=== PATIENT | female | born 1935 | race Caucasian/White ===

== ENCOUNTER → 2016-11-23 | Outpatient (CLI) | payer MEDICARE | DX: I25.10 Atherosclerotic heart disease of native coronary artery without angina pectoris (principal); I10 Essential (primary) hypertension; E78.2 Mixed hyperlipidemia; R60.9 Edema, unspecified ==

== ENCOUNTER → 2017-10-26 | Day surgery (SDC) | payer MEDICARE ==
[~2017-10-26] VITALS: Ht 167.6 cm; Wt 83.9 kg
[~2017-10-26] MED LIST: AMLO5TAB2; ATOR10TA66; Aspirin; FURO40TA4; LACTATED RINGERS 1,000 ML IV ONE; LACTATED RINGERS 1,000 ML IV SCH; LACTATED RINGERS 1,000 ML IV STA; LINA5TAB; LOSA50TA36; METO-387; POTA10TA36; SUCCINYLCHOLINE INJ 100 MG/5 ML SYR ONE; proPOfol 200 MG/20 ML (DIPRIVAN) VIAL IV ONE
--- NOTE | 2017-10-26 19:57 | ED GI ---
General Stated Complaint: FOOD CAUGHT IN THROAT CANT GET IT OUT Source of Information: Patient, Family (son) Exam Limitations: No Limitations History of Present Illness Date Seen by Provider: October 26, 2017 Time Seen by Provider: 19:46 Initial Comments The patient presents to ER by private conveyance with a chief complaint that she is having difficulty swallowing. She says she had a large piece of orange chicken at noon which she knew was going to be too big went home she swallowed it. She says she does not have a history of choking or difficulty swallowing. No history of stroke, cirrhotic liver or esophageal issues. She's not having any pain or nausea right now but every time she tries to take a drink of water to try and force it down towards comes back up. Last time she had any water was about an hour prior to arrival. Last time she ate was at noon. She's never had to have an EGD before. She has a history of cardiac stents but does not know what medicines she is on her she's on any blood thinners. Allergies and Home Medications Allergies Coded Allergies: No Known Drug Allergies (Verified Allergy, Unknown, 07/14/09) Patient Home Medication List Home Medication List Reviewed: Yes Review of Systems Constitutional: No chills, No diaphoresis, No fever, No malaise EENTM: No Blurred Vision, No Double Vision Respiratory: Denies Cough, Denies Shortness of Air Cardiovascular: Denies Chest Pain, Denies Palpitations Gastrointestinal: Denies Abdomen Distended, Denies Abdominal Pain Genitourinary: Denies Burning, Denies Discharge Musculoskeletal: No back pain, No joint pain Past Zobxmxr-Anptlk-Yufzus Hx Patient Social History Alcohol Use: Denies Use Recreational Drug Use: No Smoking Status: Never a Smoker Recent Foreign Travel: No Contact w/Someone Who Travel: No Physical Exam Vital Signs Vital Signs - First Documented 10/26/17 19:40 Temp 97.9 Pulse 65 Resp 20 B/P (MAP) 175/77 (109) Pulse Ox 96 O2 Delivery Room Air Capillary Refill : General Appearance: WD/WN, no apparent distress HEENT: PERRL/EOMI, pharynx normal Neck: non-tender, full range of motion, supple, normal inspection Respiratory: chest non-tender, lungs clear, normal breath sounds, no respiratory distress, no accessory muscle use Cardiovascular: normal peripheral pulses, regular rate, rhythm, no edema Peripheral Pulses: 2+ Radial Pulses (R), 2+ Radial Pulses (L) Gastrointestinal: normal bowel sounds, non tender, soft Extremities: no pedal edema, normal capillary refill Progress/Results/Core Measures Results/Orders Lab Results Laboratory Tests Test 10/26/17 19:50 Range/Units White Blood Count 6.6 4.3-11.0 10^3/uL Red Blood Count 4.37 4.35-5.85 10^6/uL Hemoglobin 13.2 11.5-16.0 G/DL Hematocrit 39 35-52 % Mean Corpuscular Volume 90 80-99 FL Mean Corpuscular Hemoglobin 30 25-34 PG Mean Corpuscular Hemoglobin Concent 34 32-36 G/DL Red Cell Distribution Width 13.5 10.0-14.5 % Platelet Count 144 130-400 10^3/uL Mean Platelet Volume 11.0 H 7.4-10.4 FL Neutrophils (%) (Auto) 56 42-75 % Lymphocytes (%) (Auto) 30 12-44 % Monocytes (%) (Auto) 12 0-12 % Eosinophils (%) (Auto) 2 0-10 % Basophils (%) (Auto) 0 0-10 % Neutrophils # (Auto) 3.7 1.8-7.8 X 10^3 Lymphocytes # (Auto) 2.0 1.0-4.0 X 10^3 Monocytes # (Auto) 0.8 0.0-1.0 X 10^3 Eosinophils # (Auto) 0.1 0.0-0.3 10^3/uL Basophils # (Auto) 0.0 0.0-0.1 10^3/uL Sodium Level 143 135-145 MMOL/L Potassium Level 4.2 3.6-5.0 MMOL/L Chloride Level 107 98-107 MMOL/L Carbon Dioxide Level 26 21-32 MMOL/L Anion Gap 10 5-14 MMOL/L Blood Urea Nitrogen 30 H 7-18 MG/DL Creatinine 1.49 H 0.60-1.30 MG/DL Estimat Glomerular Filtration Rate 33 BUN/Creatinine Ratio 20 Glucose Level 133 H 70-105 MG/DL Calcium Level 9.4 8.5-10.1 MG/DL Total Bilirubin 0.9 0.1-1.0 MG/DL Aspartate Amino Transf (AST/SGOT) 20 5-34 U/L Alanine Aminotransferase (ALT/SGPT) 17 0-55 U/L Alkaline Phosphatase 59 40-136 U/L Total Protein 6.9 6.4-8.2 GM/DL Albumin 4.1 3.2-4.5 GM/DL My Orders Orders - ARIANNA CAMPBELL Cbc With Automated Diff (10/26/17 19:50) Comprehensive Metabolic Panel (10/26/17 19:50) Saline Lock/Iv-Start (10/26/17 19:50) Vital Signs/I&O 10/26/17 19:40 Temp 97.9 Pulse 65 Resp 20 B/P (MAP) 175/77 (109) Pulse Ox 96 O2 Delivery Room Air Progress Progress Note #1: Time: 19:58 Progress Note We will establish an IV site some basic labs and scans the case with surgeon on- call. Progress Note #2: Time: 22:[address] Dover retrieved a food bolus and the patient is recovering. Progress Note #3: Time: 22:49 Progress Note Vital signs are normal. She is able to tolerate some fluids her and allow her to discharge home. Consults : Consulting Physician: CHEYENNE DOVER DO Consults Notes He recommends calling anesthesia, endoscopy and he will come see the patient. Departure Impression Primary Impression: FOREIGN BODY IN ESOPHAGUS Disposition: 01 HOME, SELF-CARE Condition: Improved Departure-Patient Inst. Decision time for Depature: 22:49 Referrals: LIDA SEBASTIAN MD (PCP/Family) Primary Care Physician Patient Instructions: Foreign Body, Swallowed, Adult (DC) Add. Discharge Instructions: Drink plenty fluids. Copy Copies To 1: LIDA SEBASTIAN MD, TITUS J October 26, 2017 19:57
[2017-10-26 20:02] LABS: BASOPHILS % (AUTO) 0 % (0-10); EOSINOPHILS # (AUTO) 0.1 10^3/uL (0.0-0.3); EOSINOPHILS % (AUTO) 2 % (0-10); HEMATOCRIT 39 % (35-52); HEMOGLOBIN 13.2 G/DL (11.5-16.0); LYMPHOCYTES % (AUTO) 30 % (12-44); MEAN CORPUSCULAR HEMOGLOBIN 30 PG (25-34); MEAN CORPUSCULAR HGB CONC 34 G/DL (32-36); MEAN CORPUSCULAR VOLUME 90 FL (80-99); MONOCYTES # (AUTO) 0.8 X 10^3 (0.0-1.0); MONOCYTES % (AUTO) 12 % (0-12); NEUTROPHILS # (AUTO) 3.7 X 10^3 (1.8-7.8); NEUTROPHILS % (AUTO) 56 % (42-75); PLATELET COUNT 144 10^3/uL (130-400); RED BLOOD COUNT 4.37 10^6/uL (4.35-5.85); RED CELL DISTRIBUTION WIDTH 13.5 % (10.0-14.5); WHITE BLOOD COUNT 6.6 10^3/uL (4.3-11.0)
[2017-10-26 20:22] LABS: ALBUMIN 4.1 GM/DL (3.2-4.5); BILIRUBIN,TOTAL 0.9 MG/DL (0.1-1.0); CALCIUM 9.4 MG/DL (8.5-10.1); CREATININE SERUM 1.49 MG/DL (0.60-1.30); POTASSIUM 4.2 MMOL/L (3.6-5.0); TOTAL PROTEIN 6.9 GM/DL (6.4-8.2)
--- NOTE | 2017-10-26 21:02 | Consultation ---
History of Present Illness History of Present Illness Patient Consulted On(charlie/time) 10/26/17 20:57 Time Seen by Provider: 20:24 History of Present Illness Surgery asked to consult regarding possible esophageal obstruction due to food bolus. HPI per ED: The patient presents to ER by private conveyance with a chief complaint that she is having difficulty swallowing. She says she had a large piece of orange chicken at noon which she knew was going to be too big went home she swallowed it. She says she does not have a history of choking or difficulty swallowing. No history of stroke, cirrhotic liver or esophageal issues. She's not having any pain or nausea right now but every time she tries to take a drink of water to try and force it down towards comes back up. Last time she had any water was about an hour prior to arrival. Last time she ate was at noon. She's never had to have an EGD before. She has a history of cardiac stents but does not know what medicines she is on her she's on any blood thinners. When I spoke with pt she said this has happened to her at least one time before , maybe more (her son agrees). She seems to be somewhat of a poor historian, because can't really remember if she had a Lap Ingrid or not. She had a little pain when it first occurred maybe 4 out of 10, but now rests comfortably without pain; unless she tries to drink fluid. No radiation of pain, no nausea at this time. Allergies and Home Medications Allergies Coded Allergies: No Known Drug Allergies (Verified Allergy, Unknown, 07/14/09) Patient Home Medication List Home Medication List Reviewed: Yes Past Wbwldju-Yiujme-Nljpez Hx Patient Social History Alcohol Use: Denies Use Recreational Drug Use: No Smoking Status: Never a Smoker Recent Foreign Travel: No Contact w/Someone Who Travel: No Recent Infectious Disease Expo: No Recent Hopitalizations: No Seasonal Allergies Seasonal Allergies: No Surgeries Surgeries: Cardiac (stent placement), Gallbladder Respiratory History of Respiratory Disorde: No Cardiovascular History of Cardiac Disorders: Yes Cardiac Disorders: Coronary Artery Disease, Hypertension Neurological Neurological Disorders: Dementia Reproductive System : No Hx Reproductive Disorders: No Genitourinary History of Genitourinary Disor: No Gastrointestinal Gastrointestinal Disorders: Gall Bladder Disease Musculoskeletal Musculoskeletal Disorders: Arthritis HEENT History of HEENT Disorders: No Loss of Vision: Denies Hearing Impairment: Hard of Hearing Cancer History of Cancer: No Psychosocial History of Psychiatric Problem: No Integumentary History of Skin or Integumenta: No Blood Transfusions History of Blood Disorders: No Adverse Reaction to a Blood Tr: No Family Medical History Significant Family History: Diabetes (Father and sister) Review of Systems-General Constitutional: No chills, No diaphoresis, No weakness EENTM: hoarseness, throat swelling; No blurred vision, No mouth swelling, No epistaxis Respiratory: No cough, No dyspnea on exertion, No hemoptysis Cardiovascular: No chest pain, No edema, No palpitations Gastrointestinal: No abdominal pain; dysphagia; No hematemesis, No jaundice, No melena Genitourinary: No dysuria, No frequency, No hematuria Musculoskeletal: joint pain, joint swelling Psychiatric/Neurological: Denies Anxiety, Denies Depressed, Denies Seizure, Denies Weakness Other Pt denies any abnormal bleeding or bruising Physical Exam-General Problems Physical Exam Vital Signs Vital Signs - First Documented 10/26/17 19:40 Temp 97.9 Pulse 65 Resp 20 B/P (MAP) 175/77 (109) Pulse Ox 96 O2 Delivery Room Air Capillary Refill : Less Than 3 Seconds General Appearance: WD/WN, no apparent distress Eyes: Bilateral Eye PERRL, Bilateral Eye EOMI HEENT: pharynx normal; No scleral icterus (R), No scleral icterus (L) Neck: non-tender, full range of motion, supple Respiratory: chest non-tender, lungs clear, normal breath sounds, no respiratory distress, no accessory muscle use Cardiovascular: regular rate, rhythm, no edema, no gallop, no JVD, no murmur Gastrointestinal: normal bowel sounds, non tender, soft, no organomegaly, no pulsatile mass Back: no CVA tenderness, no vertebral tenderness Extremities: normal range of motion, non-tender, no calf tenderness Neurologic/Psychiatric: spot washer II-XII nml as tested, no motor/sensory deficits, alert, normal mood/affect, oriented x 3 Skin: normal color, warm/dry Lymphatic: no adenopathy (neck, axilla or groin) Data Review Labs Laboratory Tests 10/26/17 19:50: White Blood Count 6.6, Red Blood Count 4.37, Hemoglobin 13.2, Hematocrit 39, Mean Corpuscular Volume 90, Mean Corpuscular Hemoglobin 30, Mean Corpuscular Hemoglobin Concent 34, Red Cell Distribution Width 13.5, Platelet Count 144, Mean Platelet Volume 11.0H, Neutrophils (%) (Auto) 56, Lymphocytes (%) (Auto) 30 , Monocytes (%) (Auto) 12, Eosinophils (%) (Auto) 2, Basophils (%) (Auto) 0, Neutrophils # (Auto) 3.7, Lymphocytes # (Auto) 2.0, Monocytes # (Auto) 0.8, Eosinophils # (Auto) 0.1, Basophils # (Auto) 0.0, Sodium Level 143, Potassium Level 4.2, Chloride Level 107, Carbon Dioxide Level 26, Anion Gap 10, Blood Urea Nitrogen 30H, Creatinine 1.49H, Estimat Glomerular Filtration Rate 33, BUN/ Creatinine Ratio 20, Glucose Level 133H, Calcium Level 9.4, Total Bilirubin 0.9 , Aspartate Amino Transf (AST/SGOT) 20, Alanine Aminotransferase (ALT/SGPT) 17, Alkaline Phosphatase 59, Total Protein 6.9, Albumin 4.1 Assessment/Plan Assessment/Plan Assessment/Plan Dysphagia possible obstructing food bolus CAD Plan is to take pt to Endoscopy for EGD with possible removal of food bolus possible biopsy. Risks and complications discussed with pt; not limited to pain , bleeding, infection and even esophageal perforation. Pt is also at risk for a cardiac event; however, we have to remove food bolus. I did tell her that it is possible it has already passed on its own. All questions answered to her and her son's satisfaction. CHEYENNE LIND DO October 26, 2017 21:02
--- NOTE | 2017-10-26 21:34 | Progress Note-Post Operative ---
Post-Operative Progess Note Surgeon (s)/Supervisor Orchard (s) Surgeon CHEYENNE LIND DO Supervisor Orchard: none Pre-Operative Diagnosis Dysphagia possible food bolus Post-Operative Diagnosis Food bolus obstructing Esophagus Hiatal Hernia Esophagitis Duodenitis Gastritis Gastric Polyp Procedure & Operative Findings Date of Procedure 10/26/17 Procedure Performed/Findings EGD with removal of food bolus EGD with bx of Antrum, duodenum and Polyp Anesthesia Type GET Estimated Blood Loss Estimated blood loss (mL): scant Specimens/Packing Specimens Removed food bolus Duodenal bx Antral bx Bx of Gastric Polyp CHEYENNE LIND DO October 26, 2017 21:34
--- NOTE | 2017-10-26 21:36 | Endoscopy Discharge Instruct ---
Endo Procedure/Findings Findings 1.: Hiatal Hernia (with impacted food bolus) 2.: Gastritis 3.: Polyp (Gastric) 4.: Other Findings (Duodenitis and Esophagitis) Discharge Instructions - Activity: You might feel a little sleepy until tomorrow. This is due to the medicine you received to relax you. Until tomorrow, you should: NOT drive a car, operate machinery or power tools. NOT drink any alcoholic beverages. NOT make any important decisions or sign importortant papers. Do not return to work until tomorrow, unless otherwise instructed. Resume previous activities tomorrow. Diet: Start by taking liquids. If you tolerate liquids, advance to solid food. Call on Monday 10/30 to make appointment next week. [phone] Instructions: 1.: EGD in 6-8 weeks (to check GE junction and esophagitis) Notify Physician - If you experience excessive bleeding, unusual abdominal pain, fever, or chest pain, contact your doctor immediately. Follow-Up: - I have received and understand the above instructions and will call my doctor if I have any further questions. Patient Signature Date Nurse Signature Other (Relationship) CHEYENNE LIND DO October 26, 2017 21:36
[2017-10-26 23:07] VITALS: BP 163/70
--- NOTE | 2017-10-26 23:38 | Anesthesia-General Post-Op ---
General Patient Condition Mental Status/LOC: Same as Preop Cardiovascular: Satisfactory Nausea/Vomiting: Absent Respiratory: Satisfactory Pain: Controlled Complications: Absent Post Op Complications Complications None Follow Up Care/Instructions Patient Instructions None needed. Anesthesia/Patient Condition Patient Condition Patient is doing well, no complaints, stable vital signs, no apparent adverse anesthesia problems. No complications reported per nursing. JIM MICHEL CRNA October 26, 2017 23:38
--- NOTE | 2017-10-27 01:54 | OPERATIVE REPORT ---
DATE OF SERVICE: 10/26/2017 PREOPERATIVE DIAGNOSES: 1. Dysphagia, possible food bolus. 2. Coronary artery disease. POSTOPERATIVE DIAGNOSES: 1. Obstructing food bolus in the esophagus. 2. Hiatal hernia. 3. Esophagitis. 4. Duodenitis. 5. Gastritis. 6. Gastric polyp. 7. Coronary artery disease. PROCEDURES: 1. EGD with removal of food bolus. 2. EGD with biopsy of antrum, duodenum and biopsy of gastric polyp. BLOOD LOSS: Scant. FLUIDS: Per anesthesia. POSTOPERATIVE CONDITION: Stable. SPECIMEN: One biopsy from the antrum, one biopsy from duodenum and one biopsy of gastric polyp. INDICATION FOR PROCEDURE: The patient is an 82-year-old female, who states she has trouble every time she swallows water, it comes back up. She feels like something is stuck. FINDINGS: The patient had a large piece of chicken stuck at the GE junction, looked like it was stuck in the large hiatal hernia. Picture was taken. She also had some pretty severe esophagitis noticed after the food bolus was removed as well she had gastritis, duodenitis and gastric polyps. PROCEDURE NOTE: After informed consent was obtained, the patient was brought to the endoscopy suite. She was intubated and left in the supine position. I then placed the scope down the mouth into the esophagus and down towards the GE junction. At the GE junction noted a what looked like a hiatal hernia and a large piece of chicken stuck in here. Pictures were taken. Then, able to use a Salazar Net and grasp half of this and pulled this out, went back in and saw that we had left a little bit of this chicken, grabbed another small half of this half piece, pulled this out and then went back down and able to push the rest of this chicken into the stomach. Upon entering the stomach noted gastritis, did a biopsy of the antrum, also some duodenitis and did a biopsy in the first portion of the duodenum. I did not see any active bleeding, no ulcers, pulled back, retroflexed, appeared that there was a small hiatal hernia. Also noted the gastric polyp and elected to do a biopsy of the gastric polyp. I then pulled back into the esophagus. GE junction looked pretty beat up, some irritation, some inflammation, and looked like some raw edges, picture taken, then pulled the scope up the esophagus and out the mouth. The patient tolerated the procedure and she was recovered. Job ID: [id number] DocumentID: [id number] Dictated Date: 10/26/2017 23:23:27 Recruitment And Outreach Assistant Date: 10/27/2017 01:53:33 Dictated By: CHEYENNE LIND DO
== END | disposition home or self-care (01) ==
LOC: EDUNIT# 19:34 → ER 19:35 → SDC 20:30
PROVIDERS: ATTEND Surgery
DX: T18.128A Food in esophagus causing other injury, initial encounter (principal); K20.9 Esophagitis, unspecified; K29.80 Duodenitis without bleeding; K29.70 Gastritis, unspecified, without bleeding; K44.9 Diaphragmatic hernia without obstruction or gangrene; K31.7 Polyp of stomach and duodenum; I25.10 Atherosclerotic heart disease of native coronary artery without angina pectoris; I12.9 Hypertensive chronic kidney disease with stage 1 through stage 4 chronic kidney disease, or unspecified chronic kidney disease; N18.9 Chronic kidney disease, unspecified; E11.22 Type 2 diabetes mellitus with diabetic chronic kidney disease; E78.00 Pure hypercholesterolemia, unspecified; Z95.5 Presence of coronary angioplasty implant and graft
CPT/HCPCS: 36415; 80053; 85025; 88305

== ENCOUNTER → 2018-12-12 | Outpatient (CLI) | payer MEDICARE ==
[~2018-12-12] MED LIST changes: -AMLO5TAB2; +AMLO5TAB9; -LACTATED RINGERS 1,000 ML IV ONE; -LACTATED RINGERS 1,000 ML IV SCH; -LACTATED RINGERS 1,000 ML IV STA; -LOSA50TA36; +LOSA50TA63; -SUCCINYLCHOLINE INJ 100 MG/5 ML SYR ONE; -proPOfol 200 MG/20 ML (DIPRIVAN) VIAL IV ONE
== END ==
LOC: CARD 08:17
PROVIDERS: ATTEND Internal Medicine Cardiovascular Disease
DX: I25.10 Atherosclerotic heart disease of native coronary artery without angina pectoris (principal); I65.23 Occlusion and stenosis of bilateral carotid arteries; I10 Essential (primary) hypertension; E78.2 Mixed hyperlipidemia
CPT/HCPCS: 93306

== ENCOUNTER → 2020-09-24 | Outpatient (CLI) | payer MEDICARE ==
[~2020-09-24] MED LIST changes: +AMLO-250; -AMLO5TAB9; -METO-387; +MTP25TSR
== END ==
LOC: CARD 08:46
PROVIDERS: ATTEND Internal Medicine Cardiovascular Disease
DX: I35.8 Other nonrheumatic aortic valve disorders (principal); I11.9 Hypertensive heart disease without heart failure
CPT/HCPCS: 93306